=== PATIENT | female | born 1995 | race Caucasian/White ===

== ENCOUNTER 2016-09-26 17:15 | Emergency (ER) | payer BC ==
[2016-09-26 17:55] VITALS: BP 125/78
--- NOTE | 2016-09-26 18:36 | UC ---
Complaint Female HPI - HPI Summary HPI Summary: 21 female presents today complaining of urinary symptoms that started this morning 09/26/16. Patient states she woke up and experienced burning and frequency when urinating. Patient also states even just sitting in class she feels as though her bladder is very distended and she has to go to the bathroom. When she does try and urinate sometimes nothing comes out. She also complains of some irritation and swelling on the external vulvar area. She also had an episode of blood on toilet paper after urinating. Patient denies abdominal pain. She is waiting to see a urologist due to frequent UTI's and a pelvic floor disorder. She will be starting PT for pelvic floor muscles. Patient does state she did have sexual activity yesterday but not intercourse. Denies use of condoms, lubricates, soaps, lotions. She was recently treated with Bactrim about a month ago and before that had frequent weekly treatments with bactrim. She took a bactrim that her roomate had left over today around 12pm and states she felt the symptoms have gotten worse rather than better. - History Of Current Complaint Chief Complaint: UCGU Stated Complaint: URINARY Time Seen by Provider: 09/26/16 18:18 Hx Obtained From: Patient Hx Last Menstrual Period: 3-4 years ?: No Onset/Duration: Sudden Onset - started this morning 09/26/16, Worse Since Timing: Constant Severity Initially: Mild Severity Currently: Moderate Pain Intensity: 7 Pain Scale Used: 0-10 Numeric Character: Burning Aggravating Factor(s): Urination Alleviating Factor(s): Nothing Associated Signs And Symptoms: Positive: Vaginal Bleeding/Discharge - when wiping, Genital Swelling - and erythema of vulva. Negative: Fever, Back Pain, Nausea, Vomiting(# Of Episodes =) - Allergies/Home Medications Allergies/Adverse Reactions: Allergies Allergy/AdvReac Type Severity Reaction Status Date / Time Penicillins Allergy Hives Verified 09/26/16 17:55 Home Medications: Home Medications Sulfamethox/Trimethoprim DS* [Bactrim DS 800/160 TAB*] 1 tab PO DAILY 09/26/16 [ History Confirmed 09/26/16] PMH/Surg Hx/FS Hx/Imm Hx Previously Healthy: Yes Endocrine History Of: Denies: Diabetes Cardiovascular History Of: Denies: Cardiac Disorders Respiratory History Of: Denies: Asthma - Surgical History Surgical History: Yes Surgery Procedure, Year, and Place: T&A. appy - Family History Known Family History: Negative: Hypertension, Diabetes, Renal Disease Family History: denie any family history of any disease. - Social History Alcohol Use: Occasionally Substance Use Type: None Smoking Status (MU): Never Smoked Tobacco Review of Systems Constitutional: Chills Skin: Negative Eyes: Negative ENT: Negative Respiratory: Negative Cardiovascular: Negative Gastrointestinal: Negative Genitourinary: Dysuria, Hematuria, Frequency, Urgency, Other - swelling, erythema of external genitalia Motor: Negative Neurovascular: Negative Musculoskeletal: Negative Neurological: Negative Psychological: Negative All Other Systems Reviewed And Are Negative: Yes Physical Exam Triage Information Reviewed: Yes Appearance: Well-Appearing, Well-Nourished, Pain Distress Vital Signs: Initial Vital Signs Temp 98.2 F 09/26/16 17:45 Pulse 93 09/26/16 17:45 Resp 20 09/26/16 17:45 BP 125/78 09/26/16 17:45 Pulse Ox 100 09/26/16 17:45 Vital Signs Reviewed: Yes Eye Exam: Normal ENT Exam: Normal Neck: Positive: Supple, Nontender Respiratory: Positive: Chest non-tender, Lungs clear, Normal breath sounds, No respiratory distress Cardiovascular: Positive: RRR, No Murmur, Pulses Normal Abdomen Description: Positive: Nontender - when palpating bladder patient feels as though she has to urinate, no pain otherwise, No Organomegaly, Soft. Negative: CVA Tenderness (R), CVA Tenderness (L), Distended, Guarding Bowel Sounds: Positive: Present Musculoskeletal Exam: Normal Neurological Exam: Normal Psychological Exam: Normal Skin Exam: Normal UC Physical Exam Vital Signs On Initial Exam: Initial Vitals Temp Pulse Resp BP Pulse Ox 98.2 F 93 20 125/78 100 09/26/16 17:45 09/26/16 17:45 09/26/16 17:45 09/26/16 17:45 09/26/16 17:45 - Genitalia Exam Female Genitourinary: Genitalia without Lesions/Masses, Cervix Discharge - clear to greenishy/brown discharge. some erythema. patient felt more comfortable having an affirm done. denies itchiness and white discharge. no blood noted in vaginal canal., Cervix Closed, Other - external exam signs of erythema, irritation and mild edema at vulva and labia minor. some discharge. vaginal exam was done. Complaint Female Dx - Course Course Of Treatment: Urinalysis was positive to leukocytes and blood. patient will be treated with doxycycline since she has frequent use of bactrim over the past few months. a culture was sent. she has already been referred and working with urology due to frequency of UTI's. she was also given pyridium due to severity of symptoms. pelvic exam was completed an affirm was also obtained. patient denied STD testing at this time and states she just had cultures taken at her obgyn doctor a week ago. - Differential Dx/Diagnosis Differential Diagnosis/HQI/PQRI: Ovarian Cyst, Pelvic Inflammatory Disease, , Sexually Transmitted Disease, Ureteral Stone, Urinary Tract Infection Provider Diagnoses: urinary tract infection - Physician Notifications Discussed Patient Care With: Dr Veloz Discharge - Discharge Plan Condition: Stable Disposition: HOME Prescriptions: DOXYcycline CAP(*) [DOXYcycline 100MG CAP(*)] 100 mg PO BID #20 cap Phenazopyridine TAB* [Pyridium TAB*] 100 mg PO TID #6 tab Patient Education Materials: Urinary Tract Infection in Women (ED) Referrals: Sal PHILLIPS,Antonia French [Primary Care Provider] - Additional Instructions: Take medication as prescribed until entire dose is finished. If symptoms worsen or do not improve please return to or seek medical attention. Keep follow-up with Urology. You will receive a phone call once urine culture results are obtained. Drink plenty of fluids and keep area clean. Refrain from sexual activity until symptoms resolve. Do not go tanning while taking antibiotic medication. Pyridium may make your urine change color. Remember antibiotics reduce the effectiveness of control pills
[2016-09-29 15:03] LABS: Ureaplasma Source URINE; Ureaplasma parvum PCR Negative; Ureaplasma urealyticum PCR Negative
[2016-09-29 15:06] LABS: Mycoplasma hominis Result Negative; Mycoplasma hominis Source URINE
== END 2016-09-26 19:28 | disposition home or self-care (01) ==
LOC: UCCORT 17:15
DX: N39.0 Urinary tract infection, site not specified (principal); Z88.0 Allergy status to penicillin
CPT/HCPCS: 87077; 87086; 87186; 87480; 87510; 87660; 87798; 99212; G0463

== ENCOUNTER 2017-12-17 20:25 | Emergency (ER) | payer BC ==
[2017-12-17 21:42] VITALS: BP 116/76
--- NOTE | 2017-12-17 21:56 | UC ---
FLU HPI - HPI Summary HPI Summary: Pt with sudden onset nausea, achiness, fevers, congestion Sat night. PT states has myalgia and fatigue. Pt reports decreased appetite and nausea - no vomiting. + fever, no rash. No diarhhea. No dysuria. 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 Pt had flu in Sep pt's medications reviewed this visit LMP current - History of Current Complaint Chief Complaint: UCGeneralIllness Stated Complaint: NAUSEA/ACHY Time Seen by Provider: 12/17/17 21:55 Hx Obtained From: Patient Hx Last Menstrual Period: 2.5 WKS AGO ?: No Onset/Duration: Gradual Onset, Lasting Days Pain Intensity: 7 - Allergy/Home Medications Allergies/Adverse Reactions: Allergies Allergy/AdvReac Type Severity Reaction Status Date / Time Penicillins Allergy Hives Verified 12/17/17 21:30 Home Medications: Home Medications Acetaminophen TAB* [Tylenol TAB*] 650 mg PO Q4H PRN 12/17/17 [History Confirmed 12/17/17] Ibuprofen TAB* [Advil TAB*] 400 mg PO Q4H PRN 12/17/17 [History Confirmed ] Methylphenidate HCl [Ritalin LA] 20 mg PO DAILY 12/17/17 [History Confirmed ] Methylphenidate HCl [Ritalin] 20 mg PO DAILY PRN 12/17/17 [History Confirmed ] PMH/Surg Hx/FS Hx/Imm Hx Previously Healthy: Yes - Surgical History Surgical History: Yes Surgery Procedure, Year, and Place: T&A. appy - Family History Known Family History: Negative: Hypertension, Diabetes, Renal Disease Family History: denie any family history of any disease. - Social History Occupation: Student Lives: Dormitory/Roommates Alcohol Use: Occasionally Substance Use Type: None Smoking Status (MU): Never Smoked Tobacco Review of Systems Constitutional: Fever, Fatigue ENT: Nasal Discharge, Sinus Congestion Respiratory: Cough Gastrointestinal: Nausea Musculoskeletal: Myalgia All Other Systems Reviewed And Are Negative: Yes Physical Exam Triage Information Reviewed: Yes Appearance: Well-Nourished Vital Signs: Initial Vital Signs Temp 99.1 F 12/17/17 21:38 Pulse 82 12/17/17 21:38 Resp 16 12/17/17 21:38 BP 116/76 12/17/17 21:38 Pulse Ox 100 12/17/17 21:38 Vital Signs Reviewed: Yes Eye Exam: Normal Eyes: Positive: Conjunctiva Clear ENT: Positive: Hearing grossly normal, Nasal congestion, Uvula midline, Other - + PND no exudate Dental Exam: Normal Neck exam: Normal Neck: Positive: Supple, Nontender, No Lymphadenopathy Respiratory Exam: Normal Respiratory: Positive: Chest non-tender, Lungs clear, Normal breath sounds, No respiratory distress, No accessory muscle use, Other: - intermittent cough Cardiovascular Exam: Normal Cardiovascular: Positive: RRR, No Murmur, Pulses Normal Abdomen Description: Positive: No Organomegaly, Soft. Negative: Nontender - mild epigastric discomfort Bowel Sounds: Positive: Present Musculoskeletal Exam: Normal Musculoskeletal: Positive: Strength Intact, ROM Intact, No Edema Neurological Exam: Normal Neurological: Positive: Alert Psychological Exam: Normal Psychological: Positive: Normal Response To Family, Age Appropriate Behavior Skin Exam: Normal Re-Evaluation - Re-Evaluation First Eval Comment: Pt states nausea resolved -still with mild epigastric pain. re- examined abd - no rebound, distension + BS. motrin/apap. zofran. hydrate. humidified air. wotk note Flu Course/Dx - Course Course Of Treatment: body aches,cough, nausea x 3 day. + fever. Will check flu. zofran. reassess - Differential Dx/Diagnosis Provider Diagnoses: URI. viral syndrome Discharge - Sign-Out/Discharge Documenting (check all that apply): Discharge - Discharge Plan Condition: Stable Disposition: HOME Prescriptions: Ondansetron ODT TAB* [Zofran 4 MG Odt TAB*] 4 mg PO Q6H PRN #5 tab.odt PRN Reason: Nausea Patient Education Materials: Viral Syndrome (ED) Forms: *Gen. Provider Communication, *Work Release Referrals: Sal PHILLIPS,Antonia French [Primary Care Provider] - Additional Instructions: - Stay well hydrated. Drink plenty of non-alcoholic, non-caffinated beverages. - Alternate ibuprofen (Advil, Motrin) 600mg and [id number] every 3 hours for pain or fever. Take with food. Do NOT take for more than 4-5 days. - These infections are spread by secretions - do NOT share eating or drinking utensils - clean items you share with other people such as cell phones, computer mouse, TV remote, computer tablets,etc. Once you start to feel better, change your toothbrush and your pillowcase. - get plenty of restful sleep - humidify the air in the room where you sleep - boil water, run a hot steam shower, vaporizer, cups of water by heat register - okay to take over the counter decongestant and cough medication - contact your doctor or return with questions or concerns - Billing Disposition and Condition Condition: STABLE Disposition: HOME
[2017-12-17] MEDS ORDERED: Ondansetron ODT TAB* 4 MG PO ONE ×2 (22:05→22:44)
== END 2017-12-17 22:55 | disposition home or self-care (01) ==
LOC: UCCORT 20:25
DX: J06.9 Acute upper respiratory infection, unspecified (principal); B34.9 Viral infection, unspecified; R10.13 Epigastric pain; R11.0 Nausea; Z88.0 Allergy status to penicillin
CPT/HCPCS: 87502; 99212; A9270-GY; G0463